=== PATIENT | female | born 1995 | race African-American/Black ===

== ENCOUNTER 2022-09-21 20:00 | Emergency (ER) | payer OTHER ==
[~2022-09-21] VITALS: Ht 170.2 cm; Wt 69.0 kg
[2022-09-21 20:39] VITALS: BP 132/81
[2022-09-21] MEDS ORDERED: LIDOCAINE HCL 1% 20ML VIAL (Pyxis) INJ INFIL ONE (22:30)
[2022-09-21] MEDS ORDERED: AMOX1TAB16 MT (22:46)
== END 2022-09-21 23:08 | disposition home or self-care (01) ==
LOC: ER 20:00
DX: S01.511A Laceration without foreign body of lip, initial encounter (principal); X58.XXXA Exposure to other specified factors, initial encounter; Y93.89 Activity, other specified; Y92.89 Other specified places as the place of occurrence of the external cause; Y99.8 Other external cause status
CPT/HCPCS: 12011; 99282; Z7610